=== PATIENT | female | born 1990 | race Caucasian/White ===

== ENCOUNTER 2021-11-21 22:26 | Emergency (ER) | payer OTHER ==
[~2021-11-21] VITALS: Ht 162.6 cm; Wt 95.4 kg
[2021-11-21 22:37] VITALS: BP 134/62
[2021-11-21 22:45] VITALS: BP 122/60
[2021-11-21 23:24] LABS: ANION GAP 12 (6-22 (CALC)); BUN 10 mg/dL (7-17); BUN/CREATININE RATIO 19 (12-20 (CALC)); CARBON DIOXIDE 20 mmol/l (22-30); CHLORIDE 106 mmol/l (95-108); CREATININE 0.5 mg/dL (0.5-1.0); GFR > 60 ML/MIN (>=60 (CALC)); GFR FOR AFR.AMER. > 60 ML/MIN (>=60 (CALC)); POTASSIUM 3.8 mmol/l (3.5-5.1); SODIUM 135 mmol/l (137-146)
[2021-11-21 23:38] VITALS: BP 130/86
[2021-11-21 23:41] VITALS: BP 130/86
[2021-11-21] MEDS ORDERED: HUMALOG100 UNIT/M SC (23:55)
== END 2021-11-21 23:51 | disposition home or self-care (01) | DRG 918 ==
LOC: ED 22:26
PROVIDERS: Family Medicine
DX: T38.3X1A Poisoning by insulin and oral hypoglycemic [antidiabetic] drugs, accidental (unintentional), initial encounter (principal); Y92.019 Unspecified place in single-family (private) house as the place of occurrence of the external cause; E10.9 Type 1 diabetes mellitus without complications; Z79.4 Long term (current) use of insulin; Z96.41 Presence of insulin pump (external) (internal); Z79.84 Long term (current) use of oral hypoglycemic drugs

== ENCOUNTER 2022-11-06 09:14 | Emergency (ER) | payer OTHER ==
[~2022-11-06] VITALS: Ht 162.6 cm; Wt 99.0 kg
[~2022-11-06 09:14] MED LIST: HUMALOG100 UNIT/M SC
[2022-11-06 09:20] VITALS: BP 137/93
[2022-11-06 09:30] VITALS: BP 142/93
[2022-11-06 10:59] VITALS: BP 142/93
== END 2022-11-06 11:02 | disposition home or self-care (01) | DRG 833 ==
LOC: ED 09:14
DX: O9A.212 Injury, poisoning and certain other consequences of external causes complicating pregnancy, second trimester (principal); S80.211A Abrasion, right knee, initial encounter; M25.511 Pain in right shoulder; Z3A.14 14 weeks gestation of pregnancy; O99.842 Bariatric surgery status complicating pregnancy, second trimester; W01.0XXA Fall on same level from slipping, tripping and stumbling without subsequent striking against object, initial encounter; M25.521 Pain in right elbow